=== PATIENT | male | born 1980 | race Caucasian/White ===

== ENCOUNTER 2022-09-27 09:35 | Day surgery (SDC) | payer BC ==
[~2022-09-27] VITALS: Ht 188 cm; Wt 112.8 kg
[~2022-09-27 09:35] MED LIST: FLUTICASONE P15.8 M1
--- NOTE | 2022-09-27 11:50 | NUR ---
09/27/22 1150 Lee Ann Ocampo UNDER HEAD, PILLOW UNDER KNEES, RIGHT ARM TUCKED, LEFT ARM POSITIONED WITH SLED.
--- NOTE | 2022-09-27 15:29 | NUR ---
09/27/22 1529 Rober Dennis PT REPORTED 2-3 PAIN PRIOR TO DISCHARGE. HE DESCRIBED PAIN TOLERABLE AND REFUSED PAIN MEDICATION.
== END 2022-09-27 15:10 | disposition home or self-care (01) ==
LOC: ORSCSDS 09:35
PROVIDERS: Otolaryngology
PROC: 09BM0ZZ Excision of Nasal Septum, Open Approach (ICD-10-PCS; principal; 2022-09-27 10:55)
PROC: 09BL0ZZ Excision of Nasal Turbinate, Open Approach (ICD-10-PCS; principal; 2022-09-27 10:55)
DX: J34.2 Deviated nasal septum (principal); J34.3 Hypertrophy of nasal turbinates
CPT/HCPCS: A9270; J0171; J0690; J1100; J2250; J2405; J2704; J3010